=== PATIENT | female | born 1955 | race Hispanic/Latino ===

== ENCOUNTER 2024-12-17 15:03 | Emergency (ER) | payer OTHER, MEDICARE ==
[~2024-12-17] VITALS: Ht 152.4 cm; Wt 54.4 kg
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
[2024-12-17] MEDS: FAMOTIDINE 20MG TAB PO ONE (15:26)
[2024-12-17] MEDS ORDERED: DIPH50CA38 PO (16:15)
[2024-12-17] MEDS ORDERED: PRED20TA3 PO (16:15)
[2024-12-17 16:29] VITALS: BP 152/81; PULSE 101; RESP 18; TEMP 98.6; O2SAT 98
== END 2024-12-17 16:35 | disposition home or self-care (01) ==
LOC: EDH 15:03
DX: T63.441A Toxic effect of venom of bees, accidental (unintentional), initial encounter (principal); L50.9 Urticaria, unspecified; Z85.43 Personal history of malignant neoplasm of ovary; Z90.710 Acquired absence of both cervix and uterus; Y92.89 Other specified places as the place of occurrence of the external cause
CPT/HCPCS: 96372; 99283; J1100; Q0163